=== PATIENT | female | born 1975 | race Caucasian/White ===

== ENCOUNTER 2016-10-02 22:01 | Emergency (ER) | payer BC ==
--- NOTE | 2016-10-03 06:08 | ER ---
ADMIT: 10/02/2016 RM/LOC: ER [facility] MR#: [id number] [facility] [id number] [address] [place] [address] [place] [address] Emergency Room Report SEX: F AGE: 41 : 1975 DATE: 10/02/2016 The patient is a 41-year-old female 4 days status post right knee arthroscopic cleanout procedure, tripped at home and injured her right knee. Exam remarkable for nontoxic, afebrile, obese female with intact wound minimally bleeding. Steri-Strips intact. X-ray negative. Follow up Dr. Crawley as needed. James Sherman MD/ charis JOB #: [id number] CC: James Sherman MD, Attending Physician Geetha Thorne MD
== END 2016-10-02 23:25 | disposition home or self-care (01) ==
LOC: ER 22:01
DX: S80.01XA Contusion of right knee, initial encounter (principal); Z79.899 Other long term (current) drug therapy; W18.49XA Other slipping, tripping and stumbling without falling, initial encounter; Y92.009 Unspecified place in unspecified non-institutional (private) residence as the place of occurrence of the external cause